=== PATIENT | female | born 1950 | race Caucasian/White ===

== ENCOUNTER 2018-09-25 11:04 | Emergency (ER) | payer MEDICARE, OTHER ==
[2018-09-25] MEDS ORDERED: Iodixanol* (CONTRAST) 320 MG/ML 100 ML SDV IV ONE (11:12)
--- NOTE | 2018-09-25 11:16 | ED ---
Neurological HPI - HPI Summary HPI Summary: Rom Dumont called at 1057 with 10 minutes ETA with arrival at 1104. Time seen by provider: 1104. The patient is a 67 y/o F arriving by ambulance to [facility] with a chief complaint of sudden onset stroke-like symptoms starting this morning noticed by the patient's daughter at 0700 with last known well at 2130 last night 09/24/2018. Per EMS, the daughter states that the patient usually wakes up around 0630 every morning and is actively doing things. This morning, the daughter saw the patient at 0700, and she was very lethargic and not acting like she normally does. There was notable right-sided weakness, a right-sided facial droop, slurred speech, and dysarthria. In the ambulance, the patient's systolic BP was in the 160s/170s. O2 was placed on the patient for possible stroke, but she was not desatting in the ambulance. She is not currently in pain. Hx of thyroid disease, HTN, HLD, COPD. Surgical hx of cardiac stent. No FHx of stroke. Former cigarette smoker, no EtOH, no substance use. Dr. Beavers in the ED to see patient at 1105. Patient to CT at 1106. - History of Current Complaint Stated Complaint: STROKE PER EMS Time Seen by Provider: 09/25/18 11:04 Last Known Well Date: 09/24/2018, 2129 Hx Obtained From: Patient, Family/Lead Database Administrator - daughter, EMS Onset/Duration: Sudden Onset, Started hours ago - this morning at 0700, Still Present Timing: Sudden Onset Onset Severity: Moderate Current Severity: Severe Neurological Deficit Location: Facial, RUE, RLE Pain Scale Used: 0-10 Numeric Character: Weak - on right side, Motor Weakness - right side, Impaired Speech - slurred, dysarthria, Lethargy, Other: - right-sided facial droop Aggravating: Unknown Alleviating: Unknown Associated Signs and Symptoms: Positive: Weakness - right sided, Impaired Speech - slurred, dysarthria. Negative: Pain TPA Considered: No - patient's last well known at 2130 last night Related Hx: Anticoagulants, ASA - Allergy/Home Medications Allergies/Adverse Reactions: Allergies Allergy/AdvReac Type Severity Reaction Status Date / Time Penicillins Allergy Shortness Verified 09/25/18 11:38 of Breath Home Medications: Home Medications Aspirin EC TAB* [Ecotrin EC Low Dose 81 MG*] 81 mg PO DAILY 09/25/18 [History Confirmed 09/25/18] Atorvastatin* [Lipitor*] 20 mg PO DAILY 09/25/18 [History Confirmed 09/25/18] Levothyroxine TAB* [Synthroid TAB*] 125 mcg PO DAILY 09/25/18 [History Confirmed 09/25/18] Metoprolol Tartrate TAB* [Lopressor TAB*] 25 mg PO BID 09/25/18 [History Confirmed 09/25/18] Nitroglycerin TAB 0.4 MG* 0.4 mg SL Q5M PRN 09/25/18 [History Confirmed 09/25/18 ] PMH/Surg Hx/FS Hx/Imm Hx Endocrine/Hematology History: Reports: Hx Thyroid Disease Denies: Hx Diabetes Cardiovascular History: Reports: Hx Hypercholesterolemia, Hx Hypertension, Other Cardiovascular Problems/Disorders - cardiac stent 2012 Respiratory History: Reports: Hx Chronic Obstructive Pulmonary Disease (COPD) Denies: Hx Asthma GI History: Denies: Hx Ulcer - Surgical History Surgery Procedure, Year, and Place: cardiac stent 2012 Infectious Disease History: Denies: Hx Clostridium Difficile, Hx Hepatitis, Hx Human Immunodeficiency Virus (HIV), Hx of Known/Suspected MRSA, Hx Shingles, Hx Tuberculosis - Family History Known Family History: Positive: Cardiac Disease, Hypertension - Social History Alcohol Use: None Hx Substance Use: No Substance Use Type: Reports: None Hx Tobacco Use: Yes Smoking Status (MU): Former Smoker Type: Cigarettes Amount Used/How Often: 1 pk every 2 days Review of Systems Positive: Other - lethargic Neurological: Other - right-sided facial droop, dysarthria Positive: Weakness - right-sided, Slurred Speech All Other Systems Reviewed And Are Negative: Yes Physical Exam - Summary Physical Exam Summary: Appearance: Well appearing, no pain distress Skin: warm, dry, reflects adequate perfusion Head/face: normal Eyes: EOMI, STEFANI ENT: normal Neck: supple, non-tender Respiratory: CTA, breath sounds present Cardiovascular: RRR, pulses symmetrical Abdomen: non-tender, soft Musculoskeletal: normal, strength/ROM intact Neuro: sensory motor intact, alert and oriented but slightly confused, GCS: 14 ( see scale) Triage Information Reviewed: Yes Vital Signs Reviewed: Yes - [place] Coma Scale Best Eye Response: 4 - Spontaneous Best Motor Response: 6 - Obeys Commands Best Verbal Response: 4 - Confused Coma Scale Total: 14 Diagnostics - Laboratory Result Diagrams: 09/25/18 11:30 09/25/18 11:30 Lab Statement: Any lab studies that have been ordered have been reviewed, and results considered in the medical decision making process. - CT Brain CT CT Interpretation Completed By: Radiologist Summary of CT Findings: Impression: Acute left MCA territory infarct suspected with a hyperdense M2 branch of the left MCA. Attention on follow-up head and neck CTA. ED physician has reviewed this report. Head CTA CT Interpretation Completed By: Radiologist Summary of CT Findings: Impression: 1. Acute left MCA territory infarct with no mass effect or hemorrhage. 2. The distal M1 and proximal M2 segments of the left MCA are occluded. The downstream M2/M3 segments are reconstituted by collateral circulation. 3. The left common carotid artery is occluded near its origin. The reconstituted left internal carotid artery is diminutive throughout its intra and extra cranial course. 4. There is mild, less than 50% stenosis, along the proximal right V4 segment. - EKG 1127 Cardiac Rate: NL - 66 BPM EKG Rhythm: Sinus Rhythm Summary of EKG Findings: NSR at 66 bpm. No ischemic changes. NIH Scale - NIH Scale Level of Consciousness: Alert/Keenly Responsive Ask Patient the Month and His/Her Age: One Correct/Not Aphasic Ask Pt to Open/Close Eyes and Shaft Tender/Release Non-Paretic Hand: Both Correctly Best Gaze (Only Horizontal Eye Movement): Partial Gaze Palsy Visual Field Testing: Partial Hemianopia Facial Paresis-Pt to Smile & Close Eyes or Grimace Symmetry: Partial Paralysis Motor Function - Right Arm: Drifts LT 10 seconds Motor Function - Left Arm: No Drift-Holds 10 Seconds Motor Function - Right Leg: Drifts LT 10 seconds Motor Function - Left Leg: No Drift-Holds 10 Seconds Limb Ataxia-Must be out of Proportion to Weakness Present: Present in Two Limbs Sensory (Use Pinprick to Test Arms/Legs/Trunk/Face): Pinprick Less on Affected Best Language (Describe Picture, Name Items): Some Loss Dysarthria (Read Several Words): Slurs Some Words Extinction and Inattention: Inattention Total Score: 13 Re-Evaluation - Re-Evaluation First Eval Re-Evaluation Time: 11:20 Comment: Patient is back from CT. We discussed transfer to [facility] for further care. Second Eval Re-Evaluation Time: 12:10 Comment: Patient and family aware of transfer to [facility] instead of [facility]. Course/Dx - Course Course Of Treatment: Rom Dumont called at 1057 with 10 minutes ETA with arrival at 1104. Time seen by provider: 1104. The patient is a 67 y/o F arriving by ambulance to [facility] with a chief complaint of sudden onset stroke-like symptoms including lethargy, right-sided weakness, right-sided facial droop, slurred speech, and dysarthria starting this morning noticed by the patient's daughter at 0700 with last known well at 2130 last night 09/24/2018. Takes ASA every day. Hx of HTN, HLD, COPD. No FHx of stroke. Dr. Beavers in the ED to see patient at 1105. Patient to CT at 1106. Upon physical exam, the patient appears to be somewhat confused. GCS is 14 for confused verbal response. NIH of 13 (see scale) . Dr. Beavers recommends transfer to [facility] given the patients symptom complex and Brain CT reading. Brain CT Impression: Acute left MCA territory infarct suspected with a hyperdense M2 branch of the left MCA. Attention on follow-up head and neck CTA. Head CTA Impression: 1. Acute left MCA territory infarct with no mass effect or hemorrhage. 2. The distal M1 and proximal M2 segments of the left MCA are occluded. The downstream M2/M3 segments are reconstituted by collateral circulation. 3. The left common carotid artery is occluded near its origin. The reconstituted left internal carotid artery is diminutive throughout its intra and extra cranial course. 4. There is mild, less than 50% stenosis, along the proximal right V4 segment. EKG at 1127 reveals NSR at 66 bpm. Blood work reveals BUN/Creatinine of 22.1, glucose of 121, and POC glucose of 113. BP noted in 190s systolic, but Dr. Beavers states she is stable. Nurse Shiela initiated transfer through transfer center at 1122. At 1145, Dr. Beavers consulted with [facility], and they report that they need to consult with neurology before officially accepting the patient for transfer. If the patient is not accepted at [facility], the patient will be transferred to [facility]. Dr. Beavers spoke with Dr. Syeda Leon, neurology at [facility], who accepts the patient for transfer. Patient will be transferred to [facility] via helicopter since the patient has indication of LVO stroke. She and her family agree with this plan. She is diagnosed with CVA. 30 minutes CCT. - Differential Dx Differential Diagnoses Neuro: Positive: Cerebrovascular Accident, Intracranial Bleed, Transient Ischemic Attack - Diagnoses Provider Diagnoses: CVA (cerebral vascular accident) During the Visit The Following Alert/Code Occurred: Rom Dumont - called at 1057 with ETA of 10 minutes - Physician Notifications Discussed Care Of Patient With: Taylor Beavers - neurology Time Discussed With Above Provider: 11:06 Instructed by Provider To: Other - Dr. Beavers is in the ED to talk with the patient upon arrival. After evaluating the patient with Brain CT reading, the patient is recommended to transfer to [facility]. Dr. Beavers reports that the NIH is 13. He notes that [facility] has to consult with their neurology department for acceptance, but he will push transfer to [facility] if necessary. Dr. Beavers spoke with Dr. Syeda Leon at 1210 from [facility] neurology, who accepts patient for transfer. Admit/Transition Orders Completed By ED Provider: Yes Reason For Transfer: Specialty or service not available [place] [facility] [place] appropriate [place] [facility] - Critical Care Time Critical Care Time: 30-74 min - 30 minutes CCT Discharge - Sign-Out/Discharge Documenting (check all that apply): Patient Departure - Patient is accepted for transfer to [facility]. Patient Received Moderate/Deep Sedation with Procedure: No - Discharge Plan Condition: Stable Disposition: TRANS HIGHER LVL OF CARE FAC Referrals: Radha Dhaliwal MD [Primary Care Provider] - - Billing Disposition and Condition Condition: STABLE Disposition: Trans Higher Lvl of Care Fac - Attestation Statements Document Initiated by Tanviibe: Yes Documenting Scribe: Katerine Valdes Provider For Whom Dave is Documenting (Include Credential): Dr. Donn Flores MD Scribe Attestation: Katerine Housotn scribed for Dr. Donn Flores MD on 09/25/18 at 1230. Scribe Documentation Reviewed: Yes Provider Attestation: The documentation as recorded by the Katerine larios accurately reflects the service I personally performed and the decisions made by me, Dr. Donn Flores MD Status of Scribe Document: Viewed
[2018-09-25 11:46] LABS: ABS Eosinophils 0.1 10^3/ul (0-0.6); ABS Lymphocytes 1.2 10^3/ul (1.0-4.8); ABS Monocytes 0.5 10^3/ul (0-0.8); ABS Neutrophils 4.7 10^3/ul (1.5-7.7); Eosinophil % 1.6 %; Hematocrit 41 % (35-47); Hemoglobin 13.9 g/dL (12.0-16.0); Lymphocyte % 17.6 %; Mean Corpuscular HGB Conc 34 g/dL (31-36); Mean Corpuscular Hemoglobin 30 pg (27-31); Mean Corpuscular Volume 88 fL (80-97); Mean Platelet Volume 9.1 fL (7.4-10.4); Platelet Count 213 10^3/uL (150-450); Red Blood Count 4.66 10^6 /uL (3.70-4.87); Red Cell Distribution Width 15 % (10-15); White Blood Count 6.6 10^3/uL (3.5-10.8)
[2018-09-25 11:53] LABS: Activated Partial Thrombo Time 32.5 seconds (26.0-38.0); INR 1.03 (0.82-1.09)
[2018-09-25 11:57] LABS: Albumin 3.9 g/dL (3.2-5.2); Albumin/Globulin Ratio 1.5 (1-3); BUN/Creatinine Ratio 22.1 (8-20); Calcium 8.9 mg/dL (8.6-10.3); EGFR African American 80.1 (>60); EGFR Non-African American 66.2 (>60); Globulin 2.6 g/dL (2-4); HDL Cholesterol 24.1 mg/dL; Potassium 4.4 mmol/L (3.5-5.0); Total Bilirubin 0.4 mg/dL (0.2-1.0); Total Protein 6.5 g/dL (6.4-8.9)
--- NOTE | 2018-09-25 12:16 | PN ---
Subjective Date of Service: 09/25/18 Length of Stay: 1 Days Neurology is consulted for denisa jovel to assess the patient for acute stroke. This is a neurology consult note. Interval History: CC: right sided weakness Date of service 09/25/2018 HPI: Nakita Larose is a 67-year-old female who was found confused at 0730 a.m. She was last known well at 0930 at 09/24/2018. Her daughter went to check up on her again at 0930 and noticed she has slurred speech, word finding difficulty , and right sided weakness. She called EMS. This was a sudden onset. Denisa jovel activated at 10:57 and she arrived to [facility] at 11:04. I assessed the patient at 11:04 a.m. NIHSS was 13. She was deemed not a candidate for IV tPA at 11:05 a.m. due to being outside the therapeutic window. The patient's blood glucose was 113 and BP is 190/92. CT head without contrast was discussed with Dr. Lomax at 11:31. ASPECT of 9. There is some attenuation of the left insular region. Hyperdense MCA sign on the left. CTA head and neck confirmed an M2 proximal occlusion. There is occlusion of the left common carotid artery. Spoke with Dr. Haile at 11:45 a.m. Informed me that he will discuss the case with neurosurgery. Received a call back from at 12:07 p.m. stating that the case is still under review. I contacted [facility] transfer center at 12:[address] Leon who accepted at 12:08 p.m. Air flight team were at bedside at 12:04 p.m. We cancelled the transfer to and proceeded with the transfer to [facility]. Review of Systems: Positive for headaches. Otherwise, a 14-points ROS was obtained and is negative except for what was mentioned in the HPI. Family History: Findings - No family history of stroke or seizures. Social History: Findings - No EtOH abuse. Past Medical History: Findings - Hypertension, CAD s/p stent, dyslipidmia Objective Active Medications: Aspirin 81 mg daily at home. Did not receive aspirin in the ED. Vital Signs 09/25/18 09/25/18 09/25/18 11:23 11:30 11:32 Temperature 96.7 F Pulse Rate 68 68 Respiratory 19 22 18 Rate Blood Pressure 141/92 191/92 (mmHg) O2 Sat by Pulse 94 95 Oximetry 09/25/18 11:41 Temperature Pulse Rate 65 Respiratory 20 Rate Blood Pressure 170/75 (mmHg) O2 Sat by Pulse 92 Oximetry Intake and Output Last 24 Hours 09/23/18 09/24/18 09/25/18 09/26/18 06:59 06:59 06:59 06:59 Weight 179 lb 11.2 oz Neurology Exam: General: Well nourished, well developed, and in no acute distress HEENT: Normocephelic/atraumatic, sclera anicteric, mucous membranes moist Neck: Supple Chest: Clear to auscultation bilaterally Cardiovascular: Regular rate and rhythm without murmurs, rubs, gallops Abdomen: Soft, non-tender/non-distended Extremities: No clubbing, cyanosis, or edema Neurological Findings: NIHSS: 13 Awake, alert, and oriented to person, place, and time. Speech: spastic dysarthria and mild expressive aphasia. Cranial Nerve: eyes deviating towards the left. PERRL. EOM are intact. Right lower facial droop. Widening of the palpebral fissure on the right. Motor: 4/5 strength on the right arm and leg. 5/5 strength on the left arm and leg. Pronator drift on the right. Sensation: intact to LT/PP bilaterally upper and lower extremities Deep Tendon Reflex: 2+ symmetric in the upper/lower extremities, Babinski - extensor plantar response on the right. Motor dysmetria to finger to nose and heal to bass testing on the right Gait: n/a Result Diagrams: 09/25/18 11:30 Assessment/Plan 1. Acute left MCA vascular territory ischemic infarction with left M2 segment occlusion: - I suspect possible dissection in the left common carotid or emboli from proximal occlusion of the left common carotid artery. - NIHSS 13 - Not a candidate for IV tPA due to being out side the therapeutic window - She could potentially be a candidate for mechanical thrombectomy. - Discussed case with Dr. Leon. The patient was accepted to transfer to [facility] by air. - Patient will need a CTP to look for salvageable tissue 2. 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 Hypertension: allow permissive hypertension 4. CAD s/p stent Critical care time: 40 minutes coordinating hyperacute stroke care
[2018-09-25 12:18] VITALS: BP 168/60
== END 2018-09-25 12:18 | disposition short-term general hospital (02) ==
LOC: ED 11:04
DX: I63.9 Cerebral infarction, unspecified (principal); Z79.82 Long term (current) use of aspirin; Z79.899 Other long term (current) drug therapy; Z88.0 Allergy status to penicillin; E07.9 Disorder of thyroid, unspecified; E78.00 Pure hypercholesterolemia, unspecified; I10 Essential (primary) hypertension; J44.9 Chronic obstructive pulmonary disease, unspecified; Z95.5 Presence of coronary angioplasty implant and graft; Z87.891 Personal history of nicotine dependence; I65.22 Occlusion and stenosis of left carotid artery
CPT/HCPCS: 36415; 70450; 70496; 70498; 80053; 80061; 83605; 84484; 85025; 85610; 85730; 93005; 99285; Q9967